=== PATIENT | female | born 1950 | race Hispanic/Latino ===

== ENCOUNTER 2017-03-01 19:58 | Emergency (ER) | payer MEDICARE ==
[2017-03-01 21:01] VITALS: BP 149/78
--- NOTE | 2017-03-01 22:32 | Cat Scan Report ---
FINAL REPORT PROCEDURE: CT HEAD/BRAIN WO CON TECHNIQUE: Computerized tomography of the head was performed without contrast material. HISTORY: Headache, "Never had a JOHN[place] like this before" COMPARISON: No prior studies are available for comparison. FINDINGS: There is no CT evidence of intracranial mass, hemorrhage, acute territorial infarction, or hydrocephalus. The intracranial arteries are symmetric in density. Calvarium is intact. Visualized paranasal sinuses and mastoids are aerated. IMPRESSION: No CT evidence of acute intracranial abnormality
--- NOTE | 2017-03-02 02:04 | Emergency Department Report ---
ED Headache HPI - General Chief Complaint: Headache Stated Complaint: HEADACHE/ PRESSURE UP Time Seen by Provider: 03/02/17 01:40 Source: patient Exam Limitations: no limitations - History of Present Illness Initial Comments: 56 yo with a past medical history hypertension (not currently on medications) presents to the hospital complaints of headache. Patient woke up at 5 AM with headache that started top of her head and radiates down to both temples. Headache was constant. Headache was 9/10 upon waking in the morning and described as aching. Positive nausea but denies vomiting, blurred vision, focal weakness, focal numbness, or neck pain. No trauma reported. Patient went to the drugstore and her blood pressure systolic was 175. She went home and her systolic blood pressure was in the 150s. She states her blood pressures typically in the 120s systolic. Patient expressed concerns for an aneurysm and therefore came to the ED for evaluation. Patient only taken Tylenol for pain. While waiting in the ED pain is now down to a 2/10. Allergies/Adverse Reactions: Allergies No Known Allergies Allergy (Unverified 03/01/17 20:53) Home Medications: Ambulatory Orders amLODIPine [Norvasc] 5 mg PO DAILY #30 tab 03/02/17 ED Review of Systems ROS: Stated complaint: HEADACHE/ PRESSURE UP Other details as noted in HPI Comment: All other systems reviewed and negative Other: Constitutional: No fevers chills Eyes: No eye pain visual changes ENT: No ear pain or throat pain Neck: Denies pain Respiratory: Denies cough wheezing shortness of breath Cardiovascular: Denies chest pain, palpitations, syncope GI: Denies abdominal pain, nausea, vomiting, diarrhea : Denies dysuria Musculoskeletal: Denies back pain, Skin: Denies rash, lesions, erythema Neurologic: Deniesnumbness, weakness Psychiatric: Denies suicidal ideation, hallucinations ED Past Medical Hx - Past Medical History Previous Medical History?: Yes Hx Hypertension: Yes Additional medical history: osteoporosis - Surgical History Past Surgical History?: Yes Additional Surgical History: thyroid sx 1996,(partial removal of thyroid); "enlarged right or left atrium" - Social History Smoking Status: Never Smoker Substance Use Type: None - Medications Home Medications: Home Medications Medication Instructions Recorded Confirmed Last Taken Type amLODIPine [Norvasc] 5 mg PO DAILY #30 tab 03/02/17 Unknown Rx ED Physical Exam - General Limitations: No Limitations - Other Other exam information: General: No limitations, patient is alert in no acute distress Head exam: Atraumatic, normocephalic Eyes exam: Normal appearance, pupils equal reactive to light, extraocular movements intact ENT: Moist mucous membrane, normal oropharynx Neck exam: Normal inspection, full range of motion, no meningismus nontender Respiratory exam: Clear to auscultation bilateral, no wheezes, rales, crackles Cardiovascular: Normal rate and rhythm, normal heart sounds Abdomen: Soft, nondistended, and nontender, with normal bowel sounds, no rebound, or guarding Extremity: Full range of motion normal inspection no deformity Back: Normal Inspection, full range of motion, no tenderness Neurologic: Alert, oriented x3, cranial nerves intact, no motor or sensory deficit Psychiatric: normal affect, normal mood Skin: Warm, dry, intact ED Course Vital Signs 03/01/17 20:53 Temperature 98 F Pulse Rate 64 Respiratory 16 Rate Blood Pressure 149/78 O2 Sat by Pulse 99 Oximetry - Reevaluation(s) Reevaluation #1: 03/02/17 02:09 Pain remains 2/10 in intensity BP 146/89 at this time ED Medical Decision Making - Radiology Data Radiology results: report reviewed CT head: No acute finding - Medical Decision Making Headache CT head unremarkable No nuchal rigidity or posterior headache Blood pressure remained in the 140s her ED stay Patient prefers to continue Tylenol as needed Elevated blood pressure BP remainder 140's Patient states that typical blood pressure systolic is 120 Norvasc 5 mg will be initiated for hypertension Outpatient follow-up will be in - Differential Diagnosis hypertensive headache, ICH, SAH, migraine, tension Critical Care Time: No Critical care attestation.: If time is entered above; I have spent that time in minutes in the direct care of this critically ill patient, excluding procedure time. ED Disposition Clinical Impression: Headache, HTN (hypertension) Disposition: - TO HOME OR SELFCARE Is pt being admited?: No Does the pt Need Aspirin: No Condition: Stable Instructions: Hypertension (ED), Acute Headache (ED) Additional Instructions: Continue Tylenol as needed for pain. You may take Norvasc for blood pressure control. Continue to monitor your blood pressure at home. Return is symptoms worsen. Follow-up with your doctor for further evaluation Prescriptions: amLODIPine [Norvasc] 5 mg PO DAILY #30 tab Referrals: ALEXSANDER RATLIFF [Other] - 2-3 Days Time of Disposition: 02:11
== END 2017-03-02 04:26 | disposition home or self-care (01) ==
LOC: ED 19:58
DX: I10 Essential (primary) hypertension (principal); R51 Headache
CPT/HCPCS: 70450